=== PATIENT | female | born 1985 | race Caucasian/White ===

== ENCOUNTER → 2024-07-10 | Outpatient (CLI) | payer OTHER ==
[~2024-07-10] MED LIST: BENA20; EUTHYROX125 MC1 PO; HYDR1TAB94 PO; IBUP800 PO; NIFE10; NIFE30ER PO; Percocet 5-3251 EACH PO; Prenatal Vitam1 EAC4 PO
== END ==
LOC: LAB SHORT 18:46 → LAB 18:46
DX: R30.0 Dysuria (principal)
CPT/HCPCS: 87077; 87086; 87186